=== PATIENT | female | born 1965 | race Caucasian/White ===

== ENCOUNTER 2021-03-27 08:34 | Emergency (ER) | payer BC ==
[2021-03-27] MEDS ORDERED: ALLERCLEAR10 MG PO (08:58)
[2021-03-27] MEDS ORDERED: GNP B-COMPLEX1 EACH PO (08:58)
[2021-03-27 09:29] LABS: BASO # 0.01 (0.02-0.10); EOS # 0.14 (0.04-0.40); HEMATOCRIT 39.9 % (37.0-47.0); HEMOGLOBIN 13.2 g/dL (12.5-16.0); LYMPH# 2.18 (1.50-4.00); MEAN CELL VOLUME 84 fl (78-100); MEAN CORPUSCULAR HEMOGLOBIN 28 pg (27-31); MEAN CORPUSCULAR HGB CONC 33 g/dL (33-37); MEAN PLATELET VOLUME 10.4 fl (7.4-10.4); MONO # 0.65 (0.20-0.80); NEU # 3.87 (1.40-6.50); PLATELET COUNT 270 K/mm3 (130-400); RED BLOOD COUNT 4.73 M/mm3 (4.10-5.30); RED CELL DISTRIBUTION WIDTH 12.7 % (11.5-14.5); WHITE BLOOD COUNT 6.9 K/mm3 (4.8-10.8)
[2021-03-27 09:37] LABS: ALBUMIN 3.8 g/dL (3.5-5.0)
[2021-03-27 09:38] LABS: POTASSIUM 4.4 mmol/L (3.5-5.1)
[2021-03-27 09:39] LABS: CALCIUM 8.5 mg/dL (8.3-10.5)
[2021-03-27 09:40] LABS: TOTAL PROTEIN 6.6 g/dL (6.4-8.3)
[2021-03-27 09:42] LABS: TOTAL BILIRUBIN 0.4 mg/dL (0.2-1.2)
[2021-03-27 13:23] VITALS: BP 134/80
== END 2021-03-27 13:36 | disposition home or self-care (01) ==
LOC: ED 08:34
PROVIDERS: Family Medicine
DX: R07.81 Pleurodynia (principal); Z87.19 Personal history of other diseases of the digestive system